=== PATIENT | female | born 1955 | race Caucasian/White ===

== ENCOUNTER 2016-12-22 05:51 | Day surgery (SDC) | payer BC ==
[2016-12-22] MEDS ORDERED: DIPRIVAN 200 MG/20 ML IV ONE (05:52)
[2016-12-22] MEDS ORDERED: Versed 2 MG/2 ML Injection IV ONE (05:52)
[2016-12-22] MEDS ORDERED: Lactated Ringers 1,000 ML IV SCH (06:30)
--- NOTE | 2016-12-22 08:59 | OP ---
SURGERY DATE/TIME: 12/22/2016812 PREOPERATIVE DIAGNOSIS: Screening colonoscopy. POSTOPERATIVE DIAGNOSES: 1) Normal colon. 2) Diverticulosis. PROCEDURE: Colonoscopy. SURGEON: Jc Brown M.D. ANESTHESIA: MAC by Chemo Aguillon CRNA. ESTIMATED BLOOD LOSS: None. SPECIMENS: None. DESCRIPTION OF PROCEDURE: After informed written consent was obtained, the patient was taken to the endoscopy suite. She underwent monitored anesthesia and digital rectal exam showed normal sphincter tone. The scope was inserted into the rectum and sequentially the entire colonic mucosa was traversed. The level of cecum was reached and verified with direct visualization of ileocecal valve. Upon withdrawal careful mucosal inspection revealed no gross abnormalities. Prior to withdrawal retroflexion was performed and was within normal limits. There was noted diverticulosis mostly throughout the left side of the colon with no active bleeding or abnormalities otherwise. There was a fair amount of liquidy stool present throughout the length of the colon.
[2016-12-22 09:44] VITALS: O2SAT 97
[2016-12-22 10:12] VITALS: BP 135/75; PULSE 69
[2016-12-22] MEDS ORDERED: Lactated Ringers 1,000 ML IV ONE (14:21)
== END 2016-12-22 10:19 | disposition home or self-care (01) ==
LOC: SDC 05:51
PROVIDERS: ATTEND Family Medicine
PROC: 0DJD8ZZ Inspection of Lower Intestinal Tract, Via Natural or Artificial Opening Endoscopic (ICD-10-PCS; principal; 2016-12-22)
DX: Z12.11 Encounter for screening for malignant neoplasm of colon (principal); K57.90 Diverticulosis of intestine, part unspecified, without perforation or abscess without bleeding
CPT/HCPCS: 00810; J2250; J2704

== ENCOUNTER 2023-07-17 15:33 | Emergency (ER) | payer MEDICARE ==
[2023-07-17 15:52] VITALS: BP 169/65; PULSE 92; RESP 18; TEMP 98.1; O2SAT 95
--- NOTE | 2023-07-17 15:59 | ERPHSYRPT ---
- History of Present Illness Time Seen by Provider: 07/17/23 15:57 Source: patient Patient Subjective Stated Complaint: Headache Triage Nursing Assessment: Patient ambulated back to ED and transferred self to bed. Patient A+O x3. Patient's skin pink, warm and dry. Patient complains of headache since yesterday with nausea. Patient complains of headache in forehead and behind eyes 8/10. Patient denies any recent trauma or injuries. Patient also complains of nausea, but denies vomiting. Physician History: Patient complains of headache since yesterday with nausea. Patient complains of headache in forehead and behind eyes 8/10. Patient denies any recent trauma or injuries. Patient also complains of nausea, but denies vomiting. No fever Timing/Duration: yesterday Associated Symptoms: facial pain, headache Allergies/Adverse Reactions: Sulfa (Sulfonamide Antibiotics) Allergy (Severe, Verified 07/17/23 15:41) Swelling of Face Home Medications: Fluoxetine HCl 40 mg PO DAILY 12/21/16 [History] Guaifenesin/Dextromethorphan [Mucinex Dm ER 1,200-60 mg Tab] 1 each PO BID 12/21/16 [History] Ibuprofen [Advil] 200 mg PO DAILY PRN PRN 12/21/16 [History] Losartan Potassium 50 mg [Cozaar 50 MG] 50 mg PO DAILY 12/21/16 [History] Omeprazole 20 MG [Prilosec 20 mg] 20 mg PO DAILY 12/21/16 [History] Simvastatin 20Mg [Zocor 20Mg] 20 mg PO DAILY 12/21/16 [History] Hx Influenza Vaccination/Date Given: Yes Hx Pneumococcal Vaccination/Date Given: Yes Immunizations Up to Date: Yes Travel Risk - International Travel Have you traveled outside of the country in past 3 weeks: No - Emerging Infectious Disease Are you exhibiting symptoms associated with any current EIDs: No - Review of Systems Constitutional: No Fever, No Chills Eyes: No Symptoms Ears, Nose, & Throat: No Symptoms Respiratory: No Cough, No Dyspnea Cardiac: No Chest Pain, No Edema, No Syncope Abdominal/Gastrointestinal: No Abdominal Pain, No Nausea, No Vomiting, No Diarrhea Genitourinary Symptoms: No Dysuria Musculoskeletal: No Back Pain, No Neck Pain Skin: No Rash Neurological: Headache, No Dizziness, No Focal Weakness, No Sensory Changes Psychological: No Symptoms Endocrine: No Symptoms All Other Systems: Reviewed and Negative - Past Medical History Pertinent Past Medical History: Yes Neurological History: Migraines ENT History: Cataracts Cardiac History: High Cholesterol, Hypertension Respiratory History: Other Endocrine Medical History: Other Musculoskeletal History: Fractures GI Medical History: GERD, Hernia History: No Pertinent History Psycho-Social History: Depression Female Reproductive Disorders: No Pertinent History Other Medical History: KIDNEY DISEASE STAGE 3, SOB. - Past Surgical History Past Surgical History: Yes Neuro Surgical History: No Pertinent History Cardiac: No Pertinent History Respiratory: No Pertinent History Gastrointestinal: Cholecystectomy Genitourinary: No Pertinent History Musculoskeletal: Other Female Surgical History: Dilation & Curettage Other Surgical History: bilateral shoulder surgery - Social History Smoking Status: Former smoker Exposure to second hand smoke: No Drug Use: none - Nursing Vital Signs Nursing Vital Signs: Initial Vital Signs Temperature 98.1 F 07/17/23 15:42 Pulse Rate 92 H 07/17/23 15:42 Respiratory Rate 18 07/17/23 15:42 Blood Pressure 169/65 07/17/23 15:42 O2 Sat by Pulse Oximetry 95 07/17/23 15:42 Pain Scale Pain Intensity 8 - Physical Exam General Appearance: no apparent distress, alert Eye Exam: PERRL/EOMI, eyes nml inspection Ears, Nose, Throat Exam: normal ENT inspection, TMs normal, pharynx normal, moist mucous membranes Neck Exam: normal inspection, non-tender, supple, full range of motion Respiratory Exam: normal breath sounds, lungs clear, No respiratory distress Cardiovascular Exam: regular rate/rhythm, normal heart sounds Gastrointestinal/Abdomen Exam: soft, No tenderness Back Exam: normal inspection, No CVA tenderness, No vertebral tenderness Extremity Exam: normal inspection, normal range of motion Neurologic Exam: alert, oriented x 3, cooperative, normal mood/affect, sensation nml, No motor deficits Skin Exam: normal color, warm, dry, No rash Lymphatic Exam: No adenopathy SpO2: 95 - Course Nursing assessment & vital signs reviewed: Yes Ordered Tests: Medication Summary Discontinued Medications Generic Name Dose Route Start Last Admin Trade Name Freq PRN Reason Stop Dose Admin Ketorolac Tromethamine 60 mg 07/17/23 15:57 07/17/23 16:06 Ketorolac Tromethamine 30 Mg/Ml Inj IM 07/17/23 15:58 60 mg STAT ONE Administration Ketorolac Tromethamine Confirm 07/17/23 16:03 Ketorolac Tromethamine 30 Mg/Ml Inj Administered 07/17/23 16:04 Dose 60 mg .ROUTE .STK-MED ONE Ondansetron HCl 4 mg 07/17/23 16:11 07/17/23 16:17 Zofran 4 Mg/Udtablet Orally Disintegrating PO 07/17/23 16:12 4 mg STAT ONE Administration Ondansetron HCl Confirm 07/17/23 16:12 Zofran 4 Mg/Udtablet Orally Disintegrating Administered 07/17/23 16:13 Dose 4 mg .ROUTE .STK-MED ONE Orphenadrine Citrate 60 mg 07/17/23 15:57 07/17/23 16:06 Orphenadrine Citrate 60 Mg/2 Ml Vial IM 07/17/23 15:58 60 mg STAT ONE Administration Orphenadrine Citrate Confirm 07/17/23 16:03 Orphenadrine Citrate 60 Mg/2 Ml Vial Administered 07/17/23 16:04 Dose 60 mg .ROUTE .STK-MED ONE Lab/Rad Data: Laboratory Results 07/17/23 Range/Units 16:13 Influenza Type A Ag POSITIVE A (NEGATIVE) Influenza Type B Ag NEGATIVE (NEGATIVE) RSV (PCR) NEGATIVE (NEGATIVE) SARS-CoV-2 (PCR) NEGATIVE (NEGATIVE) - Progress Progress: improved Air Movement: good Counseled pt/family regarding: lab results, diagnosis, need for follow-up Medical Desision Making - Independent Historian Additional History obtained from: Spouse - Diagnostic Testing Diagnostic test were ordered, analyzed, and reviewed by me: Yes Radiological Interpretation: Interpreted by me, Reviewed by me - Risk of complications Minimal Risk: Minimal risk of morbidity - Departure Departure Disposition: Home Clinical Impression: Influenza A Condition: Stable Critical Care Time: No Referrals: LAURA SCHRADER MD [Primary Care Provider] - Follow up/PCP as directed Instructions: Flu, Adult (DC) Additional Instructions: Discharge/Care Plan MINISTERIO BROWN was seen on 07/17/23 in the Emergency Room. The patient was counseled regarding Diagnosis,Lab results, Imaging studies, need for follow up and when to return to the Emergency Room. Prescriptions given: Discharge Note I have spoken with the patient and/or caregivers. I have explained the patient's condition, diagnosis and treatment plan based on the information available to me at this time. I have answered the patient's and/or caregiver's questions and addressed any concerns. The patient and/or caregivers have as good understanding of the patient's diagnosis, condition and treatment plan as can be expected at this point. The vital signs have been stable. The patient's condition is stable and appropriate for discharge from the emergency department. The patient will pursue further outpatient evaluation with the primary care physician or other designated or consulting physician as outlined in the discharge instructions. The patient and/or caregivers are agreeable to this plan of care and follow-up instructions have been explained in detail. The patient and/or caregivers have received these instruction. The patient/and or caregivers are aware that any significant change in condition or worsening of symptoms should prompt an immediate return to this or the closest emergency department or call 911. MINISTERIO BROWN was seen on 07/17/23 n the Emergency Room. At that time you were treated for an emergent condition, during your visit Laboratory, Radiology and/or other procedures may have been ordered. It is very important that you follow-up with your Primary Care Physician LAURA SCHRADER within the next 24- 48 hours to review your Emergency Room visit and the final results of testing that was ordered. Some test results such as Urine Cultures, Blood Cultures, and other cultures if ordered will not be finalized for 24-48 hours. If you do not have a Primary Care Provider please call the medical records department at [phone] ext [phone] to obtain a copy of your results or you may sign into our patient portal to obtain these results by visiting us @ [email or web address] and completing the following steps: 1. Click on the Patient Portal link 2. Click the Patient Self Enrollment Link to complete the enrollment form and entering your 3. Once the enrollment form is completed you will receive an email with a temporary ID and password at the email address you provided. 4. Next choose a user name and password. Your user name must be at least 4 characters long and your password must be at least 4 characters long. 5. Choose a security question from the list and provide your answer to the question. If you already have signed into the Health Portal you may access your Health Care Information 01/11 by the following steps: 1. Login to our website @ [email or web address] 2. Enter your original user name and password. FAQS [facility] Health Portal is an online tool that contains your Lab Results, Radiology Reports, Visit History, Discharge Instructions and Health Summary Lab and Radiology Results will not be available for 72 hours on the portal. The Portal is a secure site, passwords are encryted and URLs are re-written so they cannot be copied and pasted. You and authorized family members are the only ones who can access your Portal. Also there is a timeout feature that protects your information if you leave the Portal page open. If you have technical difficulty please use the Contact Us link on the page this will allow you to submit any questions you have regarding the Portal or you may contact the Medical Record Department at [phone] ext [phone]. Prescriptions: Oseltamivir 75 mg [Tamiflu 75MG Capsule] 75 mg PO BID #10 cap
[2023-07-17] MEDS ORDERED: TORAdol 30 mg Injection ONE (16:03)
[2023-07-17] MEDS ORDERED: Norflex 60 MG/2 ML ONE (16:03)
[2023-07-17] MEDS: Norflex 60 MG/2 ML IM ONE (16:06)
[2023-07-17] MEDS: TORAdol 30 mg Injection IM ONE (16:06)
[2023-07-17] MEDS ORDERED: ZOFRAN ODT 4 MG ONE (16:12)
[2023-07-17] MEDS: ZOFRAN ODT 4 MG PO ONE (16:17)
[2023-07-17 16:50] LABS: INFLUENZA B NEGATIVE (NEGATIVE); RESPIRATORY SYNCTIAL VIRUS NEGATIVE (NEGATIVE); SARS-CoV-2 Xpert Express NEGATIVE (NEGATIVE)
[2023-07-17 16:52] LABS: INFLUENZA A POSITIVE (NEGATIVE)
== END 2023-07-17 17:09 | disposition home or self-care (01) ==
LOC: ED 15:33
DX: J10.1 Influenza due to other identified influenza virus with other respiratory manifestations (principal); R51.9 Headache, unspecified; R11.0 Nausea; E78.5 Hyperlipidemia, unspecified; I12.9 Hypertensive chronic kidney disease with stage 1 through stage 4 chronic kidney disease, or unspecified chronic kidney disease; N18.30 Chronic kidney disease, stage 3 unspecified; Z79.899 Other long term (current) drug therapy
CPT/HCPCS: 0241U; 96372; 99283; J1885; J2360; Q0162

== ENCOUNTER 2024-02-28 16:00 | Emergency (ER) | payer MEDICARE ==
[2024-02-28 16:15] VITALS: TEMP 98.4
--- NOTE | 2024-02-28 17:07 | ERPHSYRPT ---
- History of Present Illness Time Seen by Provider: 02/28/24 17:07 Source: patient Exam Limitations: no limitations Patient Subjective Stated Complaint: Constipation Triage Nursing Assessment: Patient ambulated back to ED and transferred self to bed. Patient A+O X 3. Patient's skin pink, warm and dry. Patient complains of constipation for 7 days. Patient denies N/V or diarrhea. Abdomen soft and round with BS X 4. Physician History: 69-year-old female presents to our ED for evaluation of constipation. Patient states she has not had a full bowel movement in 7 days. Patient feels bloated. No abdominal pain per se. Patient's symptoms are mild to moderate in intensity. No specific worsening or improving factors. Patient states her oral intake has decreased as she is currently trying to lose weight. Patient has lost 50 pounds and has another 100 pounds to go. No hematuria dysuria no urinary complaints. No flank pain. Patient otherwise feels well. She voices no other complaints or concerns at this time. Portions of this note were created with voice recognition technology. There may be grammatical, spelling, punctuation or sound alike errors Timing/Duration: day(s) (7 days) Severity: moderate Modifying Factors: Improves With: nothing Associated Symptoms: denies symptoms Allergies/Adverse Reactions: Sulfa (Sulfonamide Antibiotics) Allergy (Severe, Verified 02/28/24 16:12) Swelling of Face Home Medications: Fluoxetine HCl 40 mg PO DAILY 12/21/16 [History] Guaifenesin/Dextromethorphan [Mucinex Dm ER 1,200-60 mg Tab] 1 each PO BID 12/21/16 [History] Ibuprofen [Advil] 200 mg PO DAILY PRN PRN 12/21/16 [History] Losartan Potassium 50 mg [Cozaar 50 MG] 50 mg PO DAILY 12/21/16 [History] Omeprazole 20 MG [Prilosec 20 mg] 20 mg PO DAILY 12/21/16 [History] Simvastatin 20Mg [Zocor 20Mg] 20 mg PO DAILY 12/21/16 [History] Hx Tetanus, Diphtheria Vaccination/Date Given: No Hx Influenza Vaccination/Date Given: Yes Hx Pneumococcal Vaccination/Date Given: Yes Immunizations Up to Date: Yes Travel Risk - International Travel Have you traveled outside of the country in past 3 weeks: No - Emerging Infectious Disease Are you exhibiting symptoms associated with any current EIDs: No - Review of Systems Constitutional: No Symptoms, No Fever, No Chills Eyes: No Symptoms Ears, Nose, & Throat: No Symptoms Respiratory: No Symptoms, No Cough, No Dyspnea Cardiac: No Symptoms, No Chest Pain, No Edema, No Syncope Abdominal/Gastrointestinal: No Symptoms, No Abdominal Pain, No Nausea, No Vomiting, No Diarrhea Genitourinary Symptoms: No Symptoms, No Dysuria Musculoskeletal: No Symptoms, No Back Pain, No Neck Pain Skin: No Symptoms, No Rash Neurological: No Symptoms, No Dizziness, No Focal Weakness, No Sensory Changes Psychological: No Symptoms Endocrine: No Symptoms Hematologic/Lymphatic: No Symptoms Immunological/Allergic: No Symptoms All Other Systems: Reviewed and Negative - Past Medical History Pertinent Past Medical History: Yes Neurological History: Migraines ENT History: Cataracts Cardiac History: High Cholesterol, Hypertension Respiratory History: Other Endocrine Medical History: Other Musculoskeletal History: Fractures GI Medical History: Hernia, GERD History: No Pertinent History Psycho-Social History: Depression Female Reproductive Disorders: No Pertinent History Other Medical History: KIDNEY DISEASE STAGE 3, SOB. - Past Surgical History Past Surgical History: Yes Neuro Surgical History: No Pertinent History Cardiac: No Pertinent History Respiratory: No Pertinent History Gastrointestinal: Cholecystectomy Genitourinary: No Pertinent History Musculoskeletal: Other Female Surgical History: Dilation & Curettage Other Surgical History: bilateral shoulder surgery - Social History Smoking Status: Former smoker Exposure to second hand smoke: No Drug Use: none - Social Determinants of Health Will the patient participate in the screening: Yes Do you worry about a steady place to live?: No Do you have any problems with any of the following?: No known problems In the past 12 months,have you had to go without utilities?: No Transportation Issues: No Has anyone in your support network made you feel unsafe?: No Have you or anyone in your house had to go without enough: No - Nursing Vital Signs Nursing Vital Signs: Initial Vital Signs Temperature 98.4 F 02/28/24 16:13 Pulse Rate 115 H 02/28/24 16:13 Respiratory Rate 20 02/28/24 16:13 Blood Pressure 163/99 02/28/24 16:13 O2 Sat by Pulse Oximetry 97 02/28/24 16:13 Pain Scale Pain Intensity 0 - Physical Exam General Appearance: no apparent distress, alert Eye Exam: PERRL/EOMI, eyes nml inspection Ears, Nose, Throat Exam: normal ENT inspection, moist mucous membranes Neck Exam: normal inspection, non-tender, supple, full range of motion Respiratory Exam: normal breath sounds, lungs clear, airway intact, No respiratory distress Cardiovascular Exam: regular rate/rhythm, normal heart sounds, normal peripheral pulses Gastrointestinal/Abdomen Exam: soft, normal bowel sounds, No tenderness, No mass Back Exam: normal inspection, normal range of motion, No CVA tenderness, No ve rtebral tenderness Extremity Exam: normal inspection, normal range of motion, pelvis stable Neurologic Exam: alert, oriented x 3, cooperative, normal mood/affect, sensation nml, No motor deficits Skin Exam: normal color, warm, dry, No rash Lymphatic Exam: No adenopathy SpO2 Interpretation: normal SpO2: 97 O2 Delivery: Room Air - Course Nursing assessment & vital signs reviewed: Yes - Progress Progress: improved Progress Note: Six 9-year-old female presents to our ED for evaluation of constipation. Patient had a disimpaction by our RN. Patient had a large bowel movement in our ED. Patient states she feels much better. Fullness resolved. Patient is not experiencing any pain. Patient states she is ready for discharge. at bedside. They voiced no other complaints or concerns at this time. Portions of this note were created with voice recognition technology. There may be grammatical, spelling, punctuation or sound alike errors Complexity problem addressed is moderate acute complicated. No critical care time. Complex of data reviewed and analyzed is none. No specialized testing ordered. Diagnosis made based on history and physical exam. Vital stable. Time spent to discharge patient approximately 10 minutes. Plan of care established for shared decision making. No social determinants of health present to impede follow-up. Patient voices no other complaints or concerns at this time. Portions of this note were created with voice recognition technology. There may be grammatical, spelling, punctuation or sound alike errors 02/28/24 17:10 Counseled pt/family regarding: lab results, diagnosis, need for follow-up, rad results - Departure Departure Disposition: Home Clinical Impression: Constipation Condition: Stable Critical Care Time: No Referrals: LAURA SCHRADER MD [Primary Care Provider] - Follow up/PCP as directed Instructions: Constipation, Adult (DC) Additional Instructions: Discharge/Care Plan MINISTERIO BROWN was seen on 02/28/24 in the Emergency Room. The patient was counseled regarding Diagnosis,Lab results, Imaging studies, need for follow up and when to return to the Emergency Room. Prescriptions given: Discharge Note I have spoken with the patient and/or caregivers. I have explained the patient's condition, diagnosis and treatment plan based on the information available to me at this time. I have answered the patient's and/or caregiver's questions and addressed any concerns. The patient and/or caregivers have as good understanding of the patient's diagnosis, condition and treatment plan as can be expected at this point. The vital signs have been stable. The patient's condition is stable and appropriate for discharge from the emergency department. The patient will pursue further outpatient evaluation with the primary care physician or other designated or consulting physician as outlined in the discharge instructions. The patient and/or caregivers are agreeable to this plan of care and follow-up instructions have been explained in detail. The patient and/or caregivers have received these instruction. The patient/and or caregivers are aware that any significant change in condition or worsening of symptoms should prompt an immediate return to this or the closest emergency department or call 911.
[2024-02-28 17:18] VITALS: BP 120/69; PULSE 71; RESP 18; O2SAT 96
== END 2024-02-28 17:24 | disposition home or self-care (01) ==
LOC: ED 16:00
DX: K59.00 Constipation, unspecified (principal)
CPT/HCPCS: 99281